=== PATIENT | female | born 2000 | race Caucasian/White ===

== ENCOUNTER 2022-03-23 08:33 | Day surgery (SDC) | payer OTHER ==
[2022-03-22 10:21] VITALS: BMI 40.2
[~2022-03-23 08:33] MED LIST: LACTATED RINGERS 1,000 ML IV SCH
[2022-03-23 09:28] VITALS: RESP 16; TEMP 96.9
[2022-03-23] MEDS ORDERED: LIDOCAINE 1% (10MG/ML) FOR IV START INTRADERMA ONE (09:31)
[2022-03-23] MEDS ORDERED: PROPOFOL 10 MG/ML 20 ML VIAL IV ONE (09:58)
[2022-03-23] MEDS ORDERED: LIDOCAINE 2% INJ 20 MG/ML (2 ML VIAL) ONE (09:58)
--- NOTE | 2022-03-23 10:10 | P.PCN ---
Date of Procedure: 03/23/22 Procedure(s) Performed: BRIEF HISTORY: Patient is a []-year-old, pleasant, white female scheduled for an upper endoscopy as a part of evaluation of chronic intermittent nausea vomiting for the last 6 months. She has these episodes at least 3-4 times a week. She was on omeprazole 20 mg twice daily with no help. Since then omeprazole 40 mg before dinner with some help.. PROCEDURE PERFORMED: Esophagogastroduodenoscopy with biopsy. PREOPERATIVE DIAGNOSIS: Chronic nausea vomiting of 9 months duration. IV sedation per anesthesia. PROCEDURE: After informed consent was obtained, the patient was brought into the endoscopy unit. IV sedation was administered by Anesthesia under continuous monitoring. Initially the Olympus GIF-140 video endoscope was inserted into the mouth. Esophagus intubated without any difficulty. It was gradually advanced into the stomach and duodenum and carefully examined. The bulb and the second part of the duodenum appeared normal. Biopsies were done from the duodenum to rule out celiac disease. The scope at this time was withdrawn to the stomach, adequately insufflated with air, and upon careful examination, mucosa of the antrum mild patchy areas of erythema and biopsies were done from this area. The, body, cardia and the fundus appeared normal. The scope was then withdrawn into the esophagus. The GE junction was located at 36 cm from the incisors. Small sliding type hiatal hernia noted. The esophagus appeared normal. There were no erosions or ulcerations seen and the patient tolerated the procedure well. IMPRESSION: 1. Small hiatal hernia but no evidence of esophagitis or Ngo's esophagus. 2. Mild antral gastritis. RECOMMENDATIONS: The findings of this examination were discussed with the patient as well as a family. She was advised to follow with the biopsy results.. She will continue with omeprazole 20 mg half hour before dinnertime and follow antireflux measures.
[2022-03-23 10:28] VITALS: BP 119/78; PULSE 74
== END 2022-03-23 10:50 | disposition home or self-care (01) ==
LOC: ORWHC2ENDO 08:33
PROVIDERS: ATTEND Internal Medicine Gastroenterology
DX: K29.70 Gastritis, unspecified, without bleeding (principal); K44.9 Diaphragmatic hernia without obstruction or gangrene; K21.9 Gastro-esophageal reflux disease without esophagitis; F12.90 Cannabis use, unspecified, uncomplicated; Z79.899 Other long term (current) drug therapy
CPT/HCPCS: 81025; 88305; 43239; J2704; J2001